=== PATIENT | male | born 1945 | race Caucasian/White ===

== ENCOUNTER → 2021-05-19 10:44 | Outpatient (BNVA) | payer MEDICARE, SELFPAY | PROVIDERS: PCP Family Medicine; Visit Provider Urology | DX: N40.1 Benign prostatic hyperplasia with lower urinary tract symptoms (principal); R39.12 Poor urinary stream; R31.29 Other microscopic hematuria | CPT/HCPCS: 51798; 99212 ==

== ENCOUNTER 2022-05-19 09:56 | Outpatient (REF) | payer MEDICARE, SELFPAY ==
[2022-05-19 16:37] LABS: Urine Cytology See Pathology rpt
== END 2022-05-19 09:57 | disposition home or self-care (01) ==
LOC: HO.LAB 09:56
PROVIDERS: PCP Family Medicine; Visit Provider Urology
DX: N40.1 Benign prostatic hyperplasia with lower urinary tract symptoms (principal); R31.29 Other microscopic hematuria
CPT/HCPCS: 51798; 88112; 99212

== ENCOUNTER 2023-05-07 11:09 | Outpatient (REF) | payer MEDICARE, SELFPAY ==
--- NOTE | ~2023-05-07 | US_ITS ---
EXAMINATION: US RETROPERITONEAL COMPLETE (RENAL) CLINICAL INFORMATION: Microscopic hematuria. COMPARISON: None available. TECHNIQUE: Real-time imaging of the kidneys and bladder. FINDINGS: RIGHT KIDNEY: 13.6 x 6.0 x 6.7 cm (SAG x AP x TRV). The kidney is normal in size, contour, and echogenicity. Renal cortical thickness is normal. No renal calculi or hydronephrosis. Three benign Bosniak class I and class II renal cysts are noted. The largest cyst is a 4.7 cm Bosniak class I cyst with a Bosniak class II cyst with a septation at the lower pole measuring 3.1 cm. These require no additional imaging or follow-up. No solid renal masses are seen. LEFT KIDNEY: 12.8 x 6.5 x 4.9 cm (SAG x AP x TRV). The kidney is normal in size, contour, and echogenicity. Renal cortical thickness is normal. No renal calculi or hydronephrosis. A benign 6.6 cm Bosniak class I renal cyst is noted which requires no additional imaging or follow-up. No solid renal masses are seen. BLADDER: Well distended and normal. Bilateral ureteral jets are demonstrated. Prevoid bladder volume is 248 mL. Postvoid bladder volume is 56 mL. There is mild BPH with 35 mL prostate. US/US retroperitoneal comp IMPRESSION: 1. Benign Bosniak class I and class II renal cysts which require no additional imaging or follow-up. 2. Mild BPH with 35 mL prostate and 56 mL postvoid residual.
== END 2023-05-07 11:10 | disposition home or self-care (01) ==
LOC: HO.US 11:09
PROVIDERS: PCP Family Medicine; Visit Provider Urology
DX: R31.29 Other microscopic hematuria (principal)
CPT/HCPCS: 76770

== ENCOUNTER 2023-06-26 09:43 | Outpatient (REF) | payer MEDICARE, SELFPAY ==
--- NOTE | ~2023-06-26 | US_ITS ---
EXAMINATION: US RETROPERITONEAL COMPLETE (RENAL) CLINICAL INFORMATION: Microscopic hematuria. COMPARISON: Ultrasound kidneys and bladder 05/07/2023. TECHNIQUE: Real-time imaging of the kidneys and bladder. FINDINGS: RIGHT KIDNEY: 17.2 x 6.8 x 6.3 cm (SAG x AP x TRV). The kidney is normal in size, contour, and echogenicity. Renal cortical thickness is normal. No renal calculi or hydronephrosis. 3 cysts. 5.7 x 5.2 x 5.2 cm simple cyst in the upper pole. 2.5 x 3.4 x 2.7 cm simple cyst in the lower pole. 2.5 x 3.4 x 2.9 cm minimally complex Bosniak type II cyst with thin septation in the lower pole. No imaging follow-up recommended. LEFT KIDNEY: 12.3 x 6.2 x 4.9 cm (SAG x AP x TRV). The kidney is normal in size, contour, and echogenicity. Renal cortical thickness is normal. No renal calculi or hydronephrosis. 6.4 x 3.4 x 3.4 cm simple cyst in the mid to lower pole. No imaging follow-up recommended. BLADDER: Well distended and normal. Bilateral ureteral jets are demonstrated. Prevoid bladder volume is 209 mL. Postvoid bladder volume is 28 mL. Prostate gland not well visualized. US/US retroperitoneal comp IMPRESSION: No cause of hematuria seen.
== END 2023-06-26 09:44 | disposition home or self-care (01) ==
LOC: HO.US 09:43
PROVIDERS: PCP Family Medicine; Visit Provider Urology
DX: R31.29 Other microscopic hematuria (principal)
CPT/HCPCS: 76770

== ENCOUNTER 2023-09-11 10:44 | Outpatient (AMB) | payer MEDICARE, SELFPAY ==
--- NOTE | 2023-09-11 10:45 | MHC.OFFVIS ---
Intake Intake Visit Reasons: 1Y US(set) Intake Note: Patient is Present for Follow Up US Urology Medication: Finasteride Antibiotic Allergies: None Blood Thinners: None Pharmacy: [facility] PVR: 0 Allergies No Known Allergies Allergy (Verified 09/11/23 10:49) Medication List - Last Reconciled 09/11/23 by Yung Rodriguez MD amitriptyline 10 mg PO BEDTIME clotrimazole-betamethasone 1-0.05 % 1 appl topical BID finasteride 5 mg PO DAILY 90 days levothyroxine 75 mcg PO DAILY losartan 50 mg PO DAILY pravastatin 10 mg PO BEDTIME HPI HPI Comments History of Present Illness Details Reginald Ahmadi is a very pleasant male. He is a patient of Dr Dennis. He is seen for the following urologic conditions. - microscopic hematuria - lower urinary tract symptoms Upper tract imaging normal Cytology normal Persistent low volume microscopic hematuria Happy with current performance of finasteride for voiding symptoms Twelve month follow-up Lower urinary tract symptoms 04/05 PSA 0.30. Microscopic hematuria was diagnosed during routine UA at office. They are here for the see in 12m - voiding improved with better stream - [facility] [place] [facility] - NAD with renal cysts. Since the last visit the patient has has not noticed gross hematuria, continues to test positive for microscopic hematuria. Relevant medical history for distant smoking history - agent orange exposure. Imaging - 2022 renal bladder ultrasound, bilateral renal cyst up to 6 cm, bladder normal Other investigations 09/04 , cytology, normal. Therapeutic plan Continue finasteride for GALLARDO symptoms. [facility] Medical History Renal cyst, acquired Microscopic hematuria Poor urinary stream Benign prostatic hyperplasia with lower urinary tract symptoms Surgical History History of surgery Review of Systems Const Denies chills and Denies fever(s) Card Reports no additional complaints and Denies syncope Resp Denies cough GI Denies abdominal pain and Denies heartburn Reports as per HPI and Denies change in libido Neuro Denies syncope Psych Denies change in libido Endo Denies change in libido Physical Exam Const General: cooperative, healthy appearing, comfortable and no acute distress Orientation/consciousness: patient oriented x3 HEENT Face and sinus: Yes normal facial exam Mouth: moist mucous membranes Neck Neck: Yes normal visual inspection, Yes full ROM and Yes trachea midline Chest Chest palpation & inspection: normal inspection of the chest Resp Effort & Inspection: normal respiratory effort, able to speak in complete sentences and no respiratory distress GI Inspection: Yes normal to inspection Back/Spine/Pelvis Cervical Spine: normal cervical lordosis Thoracic/Lumbar Spine: thoracic and lumbar spine normal to inspection Skin General skin exam: no rashes or lesions noted Neuro General: patient oriented x3, gait normal, tone normal and moves all extremities Extrem General: Yes normal to inspection and Yes capillary refill normal Office Procedures Post Void Residual Post Residual Void Post Void Residual (PVR): 0 [id number] Void Residual by ultrasound Results AMB Urinalysis, Automated UA Leukoctes 0 Hector/uL Last Edit by Ellen Valverde [facility] on 09/11/23 10:57 UA Nitrite Negative Last Edit by Ellen Valverde [facility] on 09/11/23 10:57 UA Urobilinogen 0.2 mg/dL Last Edit by Ellen Valverde [facility] on 09/11/23 10:57 UA Protein 0 mg/dL Last Edit by Ellen Valverde [facility] on 09/11/23 10:57 UA pH 6.0 Last Edit by Ellen Valverde [facility] on 09/11/23 10:57 UA Blood 25 Alfredo/uL Last Edit by Ellen Valverde [facility] on 09/11/23 10:[address] 1.015 Last Edit by Ellen Valverde [facility] on 09/11/23 10:57 UA Ketone Negative Last Edit by Ellen Valverde [facility] on 09/11/23 10:57 UA Bilirubin 0 mg/dL Last Edit by Ellen Valverde [facility] on 09/11/23 10:57 UA Glucose 0 mg/dL Last Edit by Ellen Valverde [facility] on 09/11/23 10:57 Results Reviewed Results Reviewed: Laboratory Last Values Urine pH (Auto) 6.0 09/11/23 10:[address] (Auto) 1.015 09/11/23 10:47 Urine Protein (Auto) 0 mg/dL 09/11/23 10:47 Glucose (UA)(Auto) 0 mg/dL 09/11/23 10:47 Urine Ketones (Auto) Negative 09/11/23 10:47 Urine Blood (Auto) 25 Alfredo/uL 09/11/23 10:47 Urine Nitrite (Auto) Negative 09/11/23 10:47 Urine Bilirubin (Auto) 0 mg/dL 09/11/23 10:47 Urine Urobilinogen (Auto) 0.2 mg/dL 09/11/23 10:47 Leukocyte Esterase (Auto) 0 Hector/uL 09/11/23 10:47 Assessment & Plan Assessment & Plan (1) Microscopic hematuria: Code(s): R31.29 - Other microscopic hematuria (2) Benign prostatic hyperplasia with lower urinary tract symptoms: Code(s): N40.1 - Benign prostatic hyperplasia with lower urinary tract symptoms Qualifiers: Lower urinary tract symptom detail: urinary frequency Qualified Code(s): N40.1 - Benign prostatic hyperplasia with lower urinary tract symptoms; R35.0 - Frequency of micturition Plan Twelve month follow-up Orders: Orders AMB Urinalysis Automated Today Z13.9 - Encounter for screening, unspecified AMB Post Void Residual by ultrasound Today N40.1 - Benign prostatic hyperplasia with lower urinary tract symptoms Prostate Specific Antigen 364 Days N40.1 - Benign prostatic hyperplasia with lower urinary tract symptoms Urine Cytology Today R31.29 - Other microscopic hematuria Patient Instructions: Imaging studies, laboratory and physical exam results were discussed and reviewed in detail. No major barriers to patient understanding were identified. An opportunity to ask questions regarding the treatment plan was provided. All questions were answered. The patient expressed understanding and agreement with the above treatment plan. The patient is aware they should contact our office by phone for worsening of their current condition or the appearance of new urologic symptoms. Compliance is encouraged with any medications and followup testing that is ordered. It is a privilege to participate in the urologic care of your patient. If you have any questions or concerns regarding treatment for the above conditions, or other urologic issues, please do not hesitate to contact me. The office telephone contact is [phone]. This note is constructed using voice recognition software. While every effort has been made to ensure accuracy valet manager errors may have been included. Yours sincerely, Dr Yung Rodriguez MD, [facility] - [facility] Providers of Expert, Compassionate Care for the Genitourinary System Coding Level of Care Code Est Pt Level 4 (41658) Diagnoses Microscopic hematuria R31.29 Benign prostatic hyperplasia with urinary frequency N40.1; R35.0 Lower urinary tract symptom detail: urinary frequency CPT Codes Post Residual Void - PVR CPT Code: 60008-Wvup Void Residual by ultrasound ([id number])
== END 2023-09-11 11:23 | disposition home or self-care (01) ==
PROVIDERS: Visit Provider Urology
DX: R31.29 Other microscopic hematuria (principal); N40.1 Benign prostatic hyperplasia with lower urinary tract symptoms; R35.0 Frequency of micturition; Z13.9 Encounter for screening, unspecified
CPT/HCPCS: 99213

== ENCOUNTER 2023-09-11 10:44 | Outpatient (REF) | payer MEDICARE, SELFPAY ==
[2023-09-11 16:55] LABS: Urine Cytology See Pathology rpt
== END 2023-09-11 10:45 | disposition home or self-care (01) ==
LOC: HO.LAB 10:44
PROVIDERS: Visit Provider Urology
DX: R31.29 Other microscopic hematuria (principal); N40.1 Benign prostatic hyperplasia with lower urinary tract symptoms; R35.0 Frequency of micturition
CPT/HCPCS: 51798; 81003; 88112; 99212

== ENCOUNTER 2025-02-18 08:23 | Outpatient (REF) | payer MEDICARE, SELFPAY ==
[2025-02-18 11:15] LABS: Prostate Specific Antigen 0.39 ng/mL (<0.05-4.0)
== END 2025-02-18 08:24 | disposition home or self-care (01) ==
LOC: HO.HMGCLDS 08:23
PROVIDERS: PCP Family Medicine; Visit Provider Urology
DX: Z12.5 Encounter for screening for malignant neoplasm of prostate (principal)
CPT/HCPCS: 36415; 84153

== ENCOUNTER 2025-02-26 08:55 | Outpatient (REF) | payer MEDICARE, SELFPAY ==
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
[2025-02-26 16:46] LABS: Urine Cytology See Pathology rpt
== END 2025-02-26 08:56 | disposition home or self-care (01) ==
LOC: HO.LAB 08:55
PROVIDERS: PCP Family Medicine; Visit Provider Urology
DX: N40.1 Benign prostatic hyperplasia with lower urinary tract symptoms (principal); R31.29 Other microscopic hematuria; R35.0 Frequency of micturition
CPT/HCPCS: 51798; 81003; 88112; 99212

== ENCOUNTER 2025-02-26 08:55 | Outpatient (AMB) | payer MEDICARE, SELFPAY ==
--- NOTE | 2025-02-26 09:06 | A.OFFVIS_ITS ---
Intake Visit Reasons: 1Y PVR/PSA Intake Note: Patient is Present for Follow Up US Urology Medication: Finasteride Antibiotic Allergies: None Blood Thinners: None PVR: 0ML'S TODAY'S PVR:0ML'S Housing Inspector Required: No Allergies No Known Allergies Allergy (Verified 02/26/25 09:07) HPI Comments Details: Reginald Ahmadi is a very pleasant male. He is a patient of Dr Gita moyer. He is seen for the following urologic conditions. - microscopic hematuria - lower urinary tract symptoms Prior Upper tract imaging normal Prior Cytology normal Persistent low volume microscopic hematuria May switch finasteride to Sunday, Sunday, Sunday Now [facility] [place] [facility] and [facility] Happy with current performance of finasteride for voiding symptoms Twelve month follow-up Agent orange exposure in [place] Lower urinary tract symptoms 04/05 PSA 0.30. Microscopic hematuria was diagnosed during routine UA at office. They are here for the see in 12m - voiding improved with better stream - prior evaluation through [place] - [place] March 2017 - NAD with renal cysts. Since the last visit the patient has has not noticed gross hematuria, continues to test positive for microscopic hematuria. Relevant medical history for distant smoking history - agent orange exposure. Imaging - 2022 renal bladder ultrasound, bilateral renal cyst up to 6 cm, bladder normal Other investigations 09/04 , cytology, normal. Therapeutic plan Continue finasteride for GALLARDO symptoms. [facility] Medical History Renal cyst, acquired Microscopic hematuria Poor urinary stream Benign prostatic hyperplasia with lower urinary tract symptoms Surgical History History of surgery Review of Systems Const Denies chills and Denies fever(s) Card Reports no additional complaints and Denies syncope Resp Denies cough GI Denies abdominal pain and Denies heartburn Reports as per HPI and Denies change in libido Neuro Denies syncope Psych Denies change in libido Endo Denies change in libido Physical Exam Const General: cooperative, healthy appearing, comfortable and no acute distress Orientation/consciousness: patient oriented x3 HEENT Face and sinus: Yes normal facial exam Mouth: moist mucous membranes Neck Neck: Yes normal visual inspection, Yes full ROM and Yes trachea midline Chest Chest palpation & inspection: normal inspection of the chest Resp Effort & Inspection: normal respiratory effort, able to speak in complete sentences and no respiratory distress GI Inspection: Yes normal to inspection Back/Spine/Pelvis Cervical Spine: normal cervical lordosis Thoracic/Lumbar Spine: thoracic and lumbar spine normal to inspection Skin General skin exam: no rashes or lesions noted Neuro General: patient oriented x3, gait normal, tone normal and moves all extremities Extrem General: Yes normal to inspection and Yes capillary refill normal Office Procedures Post Void Residual Post Residual Void Post Void Residual (PVR): 0 [id number] Void Residual by ultrasound Results AMB Urinalysis, Automated UA Leukoctes 0 Hector/uL Last Edit by KATE Badillo on 02/26/25 09:17 UA Nitrite Negative Last Edit by KATE Badillo on 02/26/25 09:17 UA Urobilinogen 0.2 mg/dL Last Edit by KATE Badillo on 02/26/25 09:1 7 UA Protein 0 mg/dL Last Edit by KATE Badillo on 02/26/25 09:17 UA pH 6.0 Last Edit by KATE Badillo on 02/26/25 09:17 UA Blood 80 Alfredo/uL Last Edit by KATE Badillo on 02/26/25 09:17 UA Specific [place] 1.015 Last Edit by KATE Badillo on 02/26/25 09: 17 UA Ketone Negative Last Edit by KATE Badillo on 02/26/25 09:17 UA Bilirubin 0 mg/dL Last Edit by Ambar Monk [facility] on 02/26/25 09:17 UA Glucose 0 mg/dL Last Edit by Ambar Monk [facility] on 02/26/25 09:17 Results Reviewed Results Reviewed: Laboratory Last Values Urine pH (Auto) 6.0 02/26/25 09:16 Specific [place] (Auto) 1.015 02/26/25 09:16 Urine Protein (Auto) 0 mg/dL 02/26/25 09:16 Glucose (UA)(Auto) 0 mg/dL 02/26/25 09:16 Urine Ketones (Auto) Negative 02/26/25 09:16 Urine Blood (Auto) 80 Alfredo/uL 02/26/25 09:16 Urine Nitrite (Auto) Negative 02/26/25 09:16 Urine Bilirubin (Auto) 0 mg/dL 02/26/25 09:16 Urine Urobilinogen (Auto) 0.2 mg/dL 02/26/25 09:16 Leukocyte Esterase (Auto) 0 Hector/uL 02/26/25 09:16 Assessment & Plan Assessment & Plan (1) Benign prostatic hyperplasia with lower urinary tract symptoms: Code(s): N40.1 - Benign prostatic hyperplasia with lower urinary tract symptoms Category: Medical Qualifiers: Lower urinary tract symptom detail: urinary frequency Qualified Code(s): N40.1 - Benign prostatic hyperplasia with lower urinary tract symptoms; R35.0 - Frequency of micturition (2) Microscopic hematuria: Code(s): R31.29 - Other microscopic hematuria Category: Medical Plan Plan 1. PSA indicating stability. Maintain [facility] coordination for prescription management. No further diagnostic imaging is necessary at this time, given previous normal results. Discuss Agent [place] exposure history in light of potential health implications. Follow-up for routine monitoring.: Discussion Notes We discussed maintaining the current management plan with a frequency adjustment for finasteride administration to address microscopic hematuria and urinary symptoms effectively. The patient?s PSA level is stable at 0.4, making finasteride an appropriate ongoing treatment. We reviewed the importance of coordinating prescriptions and care with the [facility], especially considering the patient's exposure to Agent [place]omb and its relevant risks. The patient expressed understanding of the medication adjustments and the reasons behind not requiring additional imaging. Morning urinary symptoms were addressed, with the strategy to monitor and adjust as needed based on symptoms. The status and recent developments in [facility] policy affecting care delivery were clarified, en suring that the patient feels secure in their care path. Follow-up and continuity with [facility] primary care, specifically with Dr. Cordova, is reinforced. Patient Instructions - Take finasteride every Sunday, Sunday, and Sunday. - Monitor any changes in urinary symptoms and report if they worsen. - Keep scheduled routine follow-ups and consult with Dr. Chavez for ongoing care. - Coordinate with the [facility] for [facility] and any required services. - Stay aware of impacts related to Agent Macomb exposure in case of new symptoms. Orders: Orders AMB Urinalysis Automated Today Z13.9 - Encounter for screening, unspecified Urine Cytology Today R31.29 - Other microscopic hematuria Patient Instructions: This note is constructed using voice recognition software. While every effort has been made to ensure accuracy screen printing cloth spreader errors may have been included. Imaging studies, laboratory and physical exam results were discussed and reviewed in detail. No major barriers to patient understanding were identified. An opportunity to ask questions regarding the treatment plan was provided. All questions were answered. The patient expressed understanding and agreement with the above treatment plan. The patient is aware they should contact our office by phone for worsening of their current condition or the appearance of new urologic symptoms. Compliance is encouraged with any medications and followup testing that is ordered. It is a privilege to participate in the urologic care of your patient. If you have any questions or concerns regarding treatment for the above conditions, or other urologic issues, please do not hesitate to contact me. The office telephone contact is [phone]. Sincerely, Dr Yung Rodriguez MD, [facility] - Urology Compassionate Specialist Care for the Genitourinary System Coding Level of Care Code Est Pt Level 4 (23743) Complex EM visit Add On G2211 Diagnoses Benign prostatic hyperplasia with urinary frequency N40.1; R35.0 Lower urinary tract symptom detail: urinary frequency Microscopic hematuria R31.29 CPT Codes Post Residual Void - PVR CPT Code: 42720-Vdix Void Residual by ultrasound ([id number])
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
--- OUTSIDE RECORDS SUMMARY | 2025-02-26 09:29 | XMS_ITS | Encounter Summary ---
Author Name [facility] [place] [facility] [place] Address [address] [place] [address] Care Team Providers Care Wood Model Maker Name Role Phone ANDREW NORWOOD Primary Care [...] Name Patient's Relationship to [place] SU[place] RICARDA PSUED O MEDEX HEARI NG Nov 19, 2020 [id number] [phone] Reginald PARMAR AVID PATIENT [place] SU[place] PSEUD O MEDEX BRONZ E Nov 19, 2016 [id number] Reginald PARMAR AVID PATIENT CIGNA HIGH DEDUCTIBL E HEALTH PLAN W/HEALTH SAVINGS ACCOUNT [facility] UTUAL HDHP HSA Nov 19, 2011 [id number] Pavel PARMAR ZAINATIF SPOUSE CIGNA* POINT OF SERVICE [place]ASS UTUAL FINAN CIAL Nov 19, 2009 [id number] [phone] Pavel PARMAR RANCINE SPOUSE EXPRESS SCRIPTS ([id number]) PRESCRIPT ION HDHP Nov 19, 2011 [id number] [phone] Pavel PARMARCINE SPOUSE EXPRESS SCR[employer]TS ([id number]) PRESCRIPT ION K4UA Nov 19, 2009 [id number] REIPOLD,D AVID PATIENT MEDICARE (WNR) MEDICARE () RR PART B Oct 19, 2016 RR PART B [id number] REIPOLD,D AVID PATIENT MEDICARE (WNR) MEDICARE () RR PART B Oct 19, 2016 RR PART B [id number] [phone] REIPOLD,D AVID PATIENT MEDICARE (WNR) MEDICARE () PART B Oct 19, 2016 PART B [id number] [phone] REIPOLD,D AVID PATIENT MEDICARE (WNR) MEDICARE () PART A 2011 PART A [id number] REIPOLD,D AVID PATIENT MEDICARE (WNR) MEDICARE () PART B 2011 PART B [id number] REIPOLD,D AVID PATIENT MEDICARE (WNR) MEDICARE () PART A 2011 PART A [id number] [phone] REIPOLD,D AVID PATIENT MEDICARE (WNR) MEDICARE () PART B 2011 PART B [id number] REIPOLD,D AVID PATIENT MEDICARE (WNR) MEDICARE () RR PART A 1994 RR PART A [id number] [phone] REIPOLD,D AVID PATIENT MEDICARE (WNR) MEDICARE () RR PART A 1994 RR PART A [id number] REIPOLD,D AVID PATIENT MEDICARE (WNR) MEDICARE () PART A 1994 PART A [id number] [phone] REIPOLD,D AVID PATIENT MEDICARE (WNR) MEDICARE () PART A 1994 PART A [id number] REIPOLD,D AVID PATIENT MEDICARE (WNR) MEDICARE () PART A 1994 PART A [id number] [phone] Reginald PARMAR PATIENT Selected Encounter This section includes the information on record at [place] for the Encounter. Date/Time Encounter Type Encounter Description Reason Pro vider Source Oct 09, 2024 10:54 AM Outpatient Encounter ADMIN PAT ACTIVTIES (MASNONCT) IHE Encounter Template Text not used by [place] Plan of Treatment: Future Appointments (+ 6 months) and Future Tests (+/- 45 days) The Plan of Treatment section includes future care activities for the [facility] [place] [facility] This section includes future appointments and future orders which are active, pending or scheduled. Future Appointments This section includes appointments that were scheduled to occur 6 months from the date of the Encounter, up to a maximum of 20 appointments. The data comes from all [place] treatment facilities. Appointment Date/Time Appointment Type Appointme nt Facility Name Feb 20, 2025 09:30 AM AMBULATORY - MEDICINE [facility] [place] [facility] Feb 24, 2025 09:30 AM AMBULATORY MEDICINE [facility] [place] [facility] Feb 25, 2025 08:00 AM AMBULATORY - MEDICINE [facility] [place] [facility] Social History: Smoking Status (Most current) and Tobacco Use (All prior to encounter date) This section includes the most current, and the historical, smoking and tobacco- related health factors from the [place] facility where the Encounter took place. Current Smoking Status This section includes the most current smoking, or tobacco-related health factor, from the [place] facility where the Encounter took place. Date/Time Current Smoking Status Comment Facil ity Sep 17, 2023 01:00 PM VA-TOBACCO [facility] [place] [facility] Tobacco Use History This section includes a history of the smoking, or tobacco-related health factors, that were collected on or before the date of the Encounter. The data comes from the [place] facility where the Encounter took place. Date/Time Smoking Status/Tobacco Use Comment F acility Sep 17, 2023 01:00 PM [place]-TOBACCO QUIT 15 YRS OR MORE [place] [facility] [place] [facility] April 14, 2020 11:41 AM VA-TOBACCO FORMER USER [place] [facility] [place] [facility] April 14, 2020 11:41 AM [place]-TOBACCO QUIT 15 YRS OR MORE [facility] Encounter Notes: All associated encounter notes This section contains the clinical notes associated to the Encounter. Date/Time Encounter Note(s) Provider Source Oct 09, 2024 10:54 AM MEDICATION MGT NOT E: LOCAL TITLE: MEDICATION RENEWAL STANDARD TITLE: MEDICATION MGT NOTE DATE OF NOTE: OCT 09, 2024@10:54 ENTRY DATE: OCT 09, 2024@10:54:58 AUTHOR: HARSHAD DIAS EXP COSIGNER: URGENCY: STATUS: COMPLETED Hello we have requesting medication renewal for mailing please please renew if appropiate Active Outpatient Medications (including Supplies): Active Non-VA Medications Status = HYDROCHLOROTHIAZIDE 25MG TAB PRAVASTATIN NA 10MG TAB /es/ HARSHAD DIAS WHOLESALE REPRESENTATIVE Signed: 10/09/2024 10:56 Receipt Acknowledged By: 10/09/2024 16:25 /man/ ANDREW NORWOOD D.O. PHYSICIAN HARSHAD DIAS [facility]
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
--- OUTSIDE RECORDS SUMMARY | 2025-02-26 09:29 | XMS_ITS | Continuity of Care Document ---
Author Organization [place] - [facility], [facility] Address [address] [place] [address] Assessment Encounter Date Assessment Date Assessment LastModified by Organization Details LastModified Time 02/23/2025 02/23/2025 Cerumen successfully removed from the left ear, which patient tolerated well. Otologic exam unremarkable on that side. On the right, there is a small closed comedone on the roof of the lateral external auditory canal. Reviewed with patient this is not infected and no antibiotic treatment is needed. Recommend he leave his hearing aid out for several days and apply a warm compress 3-4 times daily. Patient will call with lack of improvement or worsening. Otherwise, will follow-up in 6 months for cerumen removal. [email or web address] Not available 02/23/2025 11:11:35 Plan of Treatment Reminders Order Date Submit Date Provider Last Modified By Organization Details Last Modified Time Details Appointments Establish ed 15 2024 10:30A M MARISA FONSECA PA-C Not available Not available Not available Lab None recorded. Referral None recorded. Procedures None recorded. Surgeries None recorded. Imaging None recorded. Medication Orders None recorded. Patient TargetsNo targets recorded. Patient InstructionsNo instructions recorded. Reason for Referral None Reported. 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 specifie d superfic ial mycoses; Note: Date Diagnose d: 0 12:56 PM (B36.8) Not Available [facility] 4 02:57:09 Otalgia of right ear 1837681161 Active 2016 Otalgia, right ear; Note: Date Diagnose d: 7 4:14 PM (H92.01) Not Available [facility] 4 02:57:12 Impacted cerumen of bilatera l ears 92254192792 68989 Active 2014 Impacted cerumen, bilatera l; Note: Date Diagnose d: 09/01/20 15 1:39 PM (H61.23) Not Available [facility] 4 02:57:12 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 13646922654 69762 Active 2015 Exostosi s of external canal, bilatera l; Note: Date Diagnose d: 6 12:58 PM (H61.813 ) Not Available [facility] 4 02:57:13 Sensorin 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 189022200 Active 2017 Hearing loss: Sensorin eural hearing loss, bilatera l; Note: Date Diagnose d: 07/27/2015 3:56 PM (389.18) ; Start Date : 07/27/20 15 Senso rineural hearing loss, bilatera l; Note: Date Diagnose d: 8 10:32 AM (H90.3) Not Available [facility] 4 02:57:09 Bilatera l external auditory canal chronic otitis externa 05037920627 15388 Completed 201406/20/2024 Unspecif ied chronic otitis externa, bilatera l; Note: Date Diagnose d: 5 10:25 AM (H60.63) Not Available [facility] 4 02:57:13 Closed comedone 873299383 Active [address] [facility],[place] [address], [place], [address] , [facility] - [facility] 5 11:11:39 Impacted cerumen in left ear 07465538337 11156 Active [address],[place] [address], [place], [address] , [facility] - [facility] [place] 5 11:11:44 Problem Notes None recorded. Procedures Surgical History Date Name Laterality Status Provider Name and Address Organization Details Recorded Time 5 Cerumen removal without microscope left completed KEVIN WRIGHT[address],[place] [address], [place], [address], [facility] 02/23/2025 11:10:49 4 Cerumen removal without microscope bilat completed REDDY WRGIHTTheTakes[address],[place] [address], [place], [address], [facility] 08/06/2024 13:31:35 Imaging Results None recorded. Procedure Notes None recorded. Medical Equipment None Reported. Medications Name Sig Start Date Stop Date Status Note LastModified by Organization Details LastModified Time losartan 50 mg tablet TAKE 1 TABLET BY MOUTH DAILY active Not Available Not Available No t Available alprazola m 1 mg tablet TAKE 1 TABLET BY MOUTH 1 HOUR PRIOR TO INJECTIO N active Not Available Not Available No t Available benzonata te 200 mg capsule TAKE 1 CAPSULE BY MOUTH THREE TIMES DAILY FOR 7 DAYS active Not Available Not Available No t Available clotrimaz ole-betam ethasone 1 %-0.05 % lotion 11/29 completed Medicati on ID: [id number] R va: () Brand Name: Alpeshon e Send Method: E-Prescr ibed Sub s Allowed: subs OK Speci al Instruct ion: apply to external ear tid X 2 weeks Me dication GenericN stiven: Lotrison e Not Available Not Available Not Available sildenafi l 100 mg tablet 2020 active Medicati on ID: [id number] B rand Name: jose antonio il Send Method: E-Prescr ibed Sub s Allowed: subs OK Speci al Instruct ion: TK 1 T PO D PRF ERECTILE DYSFUNCT ION Medi cationGe nericNam e: gayladenaf il Not Available Not Available Not Available levothyro xine 75 mcg tablet TAKE 1 TABLET BY MOUTH DAILY active Not Available Not Available No t Available amitripty line 25 mg tablet TAKE 2 TABLETS BY MOUTH AT BEDTIME. IF NOT IMPROVED IN 2 WEEKS TAKE 3 TABLETS BY MOUTH. STILL NOT IMPROVED IN 2 WEEKS TAKE 4 TABLET active Not Available Not Available No t Available amitripty line 10 mg tablet active Not Available Not Available No t Available econazole nitrate 1 % topical cream APPLY TOPICALL Y TO THE AFFECTED AREA TWICE DAILY active Not Available Not Available No t Available clotrimaz ole-betam ethasone 1 %-0.05 % topical cream 1 a small amount 2020 active Medicati on ID: [id number] D uration Value: 14 Prescri bed By Name: MIKE Martinez nd Name: joserirefugio darryl jimenez Send Method: E-Prescr ibed Sub s Allowed: subs OK Speci al Instruct ion: Apply with fingerti p to external ear as needed M edicatio nGeneric Name: clotrima laura-emily germain ne Not Available Not Available Not Available clotrimaz ole 1 % topical solution 11/29 completed Medicati on ID: [id number] P rescribe d By Name: JEREMIE Dillard nd Name: rubyrefugio laura Collins d Method: E-Prescr ibed Sub s Allowed: subs OK Speci al Instruct ion: 5 drops to affected ear twice a day Medi cationGe nericNam e: clotrima zole Not Available Not Available Not Available hydrochlo rothiazid e 25 mg tablet 11/29 completed Medicati on ID: [id number] Du ration Value: 90 Brand Name: hydrochl orothiaz susie Send Method: E-Prescr ibed Sub s Allowed: subs OK Medic ationGen ericName : hydrochl orothiaz susie Not Available Not Available Not Available diclofena c sodium 50 mg tablet,de layed release TAKE 1 TABLET BY MOUTH TWICE DAILY WITH FOOD active Not Available Not Available No t Available gabapenti n 100 mg capsule TAKE 2 CAPSULES BY MOUTH AT BEDTIME. IF TOLERATI NG WELL. MAY INCREASE TO 3 TABLETS active Not Available Not Available No t Available ketoconaz ole 2 % topical cream active Not Available Not Available Not Available fluticaso ne propionat e 50 mcg/actua tion nasal spray,bacilio pension SHAKE LIQUID AND USE 1 SPRAY IN EACH NOSTRIL TWICE DAILY active Not Available Not Available No t Available finasteri de 5 mg tablet TAKE 1 TABLET BY MOUTH DAILY active Not Available Not Available No t Available tobramyci n 0.3 %-dexamet hasone 0.1 % eye drops,bacilio pension 04/03 completed Medicati on ID: [id number] Du ration Value: 10 Reason: () Brand Name: tobramyc in-dexam ethasone Send Method: E-Prescr ibed Sub s Allowed: subs OK Medic ationGen ericName : tobramyc in-dexam ethasone Not Available Not Available Not Available duloxetin e 30 mg capsule,d elayed release TAKE 1 CAPSULE BY MOUTH EVERY MORNING - IF NOT IMPROVED AFTER 1 MONTH INCREASE TO 2 CAPSULES BY MOUTH EVERY MORNING active Not Available Not Available No t Available GaviLyte- G 236 gram-22.7 4 gram-6.74 gram-5.86 gram oral solution 02/23 completed Not Available Not Available Not Available Vitals Date Recorded Body height Body mass index (BMI) Body weight Provider Name and Address Organization Details Last Updated DateTime 02/23/2025 167.64 cm 39.2 kg/m2 280673.95 g Lynda Stearns [place] - [facility] 02/23/2025 10:52:19 Social History None recorded. Functional Status None recorded. Mental Status None recorded. Family History Nothing Reported. Medical History No medical history recorded. Past Encounters Encounter ID Performer Location Encounter Start Date Encounter Closed Date Diagnosis/Indication Diagnosis SNOMED-CT Code Diagnosis ICD10 Code Diagnosis Note [id number] BILL ZALDIVAR MD [facility] [address] [place] [address] 02/23/2025 10:48:07 02/23/2025 11:00:44 Closed comedone 779991073 L70.0 Impacted c erumen in left ear 5435912031 230974 H61.22 Health Concerns Section Related Observation LastModified by Organization Detai ls LastModified Time None Recorded Concern Status LastModified by Organization Details LastModified Time None Recorded Payers Encounter Date Sequence Insurance Name Policy Number Policy Park Covered Member ID Park Member ID Guarantor Name 02/23/2025 1 MED[place]ARE [place]: [facility] [employer] Reginald Ahmadi [id number] Reginald Tirado Brentmarcie 02/23/2025 2 [place] [employer] [employer] [id number] Reginald Chileldeannmarcie [id number] Reginald Candida Brentmarcie Notes Date Note Type Note Provider Name and Address Organization Details Recorded Time 02/23/2025 text/html 79-year-old male presents for evaluation of the ears. He reports that in the past few weeks, he has had discomfort in 1 discrete spot when he inserts his right hearing aid. There has been no otorrhea. He feels his hearing is at baseline. He gets his audiometric testing and his hearing aids from the [facility]. BILL ZALDIVAR MD [address] [place] [address], [phone], [facility] - [facility] 02/23/2025 16:57:53
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
--- OUTSIDE RECORDS SUMMARY | 2025-02-26 09:29 | XMS_ITS | Continuity of Care Document ---
Author Organization [facility]. If a dditional information is needed, contact Health Information Management at [phone] Address [address] [place] [address] Phone Care Team Providers Care Varnishing Machine Operator Name Role Phone Unavailable Unavailable Unavailable Unavailable Unavailable Unavailable Unavailable Unavailable Unavailable Problems Diverticular disease Onset:26-Jan-2022 Uyen Sanchez MD Allergies and Adverse Reactions No Known Allergies(Allergy) Onset: 26-Jan-2022 Social History Smoking Status Tobacco smoking consumption unknown Recorded: Dec-2022 Tobacco smoking consumption unknown Recorded:
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
--- OUTSIDE RECORDS SUMMARY | 2025-02-26 09:30 | XMS_ITS | Data Portability ---
Author Organization [place] - [facility], Allergy Address [address] [place] [phone] Assessment Encounter Date Assessment Date Assessment LastModified by Organization Details LastModified Time 08/06/2024 08/06/2024 Patient presents for evaluation of ears. Cerumen successfully removed bilaterally, which patient tolerated well. Otologic exam otherwise unremarkable. Patient reported hearing returned to baseline thereafter and declined audiometric testing. Return in 3-6 months for cerumen removal. Avoid Q-tips. Avoid or protect against loud noise. Continue routine use of binaural amplification. Recommend annual audiometric testing, sooner with perceived change. Patient understands to call sooner with any issues that arise. Not available 08/06/2024 13:31:57 02/23/2025 02/23/2025 Cerumen successfully removed from the [...] follow-up in 6 months for cerumen removal. 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 Active 2019 Other specifie d superfic ial mycoses; Note: Date Diagnose d: 0 12:56 PM (B36.8) Not Available [facility] 4 02:57:09 Otalgia of right ear 1594035946 Active 2016 Otalgia, right ear; Note: Date Diagnose d: 7 4:14 PM (H92.01) Not Available [facility] 4 02:57:12 Impacted cerumen of bilatera l ears 17017994107 Active 2014 Impacted cerumen, bilatera l; Note: Date Diagnose d: 09/01/20 15 1:39 PM (H61.23) Not Available [facility] 4 02:57:12 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 51085583535 72868 Active 2015 Exostosi s of external canal, bilatera l; Note: Date Diagnose d: 6 12:58 PM (H61.813 ) Not Available [facility] 4 02:57:13 Sensorin 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 759507528 Active 2017 Hearing loss: Sensorin eural hearing loss, bilatera l; Note: Date Diagnose d: 07/27/2015 3:56 PM (389.18) ; Start Date : 07/27/20 15 Senso rineural hearing loss, bilatera l; Note: Date Diagnose d: 8 10:32 AM (H90.3) Not Available [facility] 4 02:57:09 Bilatera l external auditory canal chronic otitis externa 07981835807 46895 Completed 201406/20/2024 Unspecif ied chronic otitis externa, bilatera l; Note: Date Diagnose d: 5 10:25 AM (H60.63) Not Available [facility] 4 02:57:13 Closed comedone 064611277 Active 2024 DANIELLE DIMAS PA-C [address] [place] [facility], [place], [address] , [facility] - [facility] 5 11:11:39 Impacted cerumen in left ear 80769799264 51725 Active 2024 KEVIN WRIGHTC [address] [place] [address], [place], [address] , [facility] - [facility] [place] 5 11:11:44 Problem Notes None recorded. Procedures Surgical History Date Name Laterality Status Provider Name and Address Organization Details Recorded Time 5 Cerumen removal without microscope left completed DANIELLE DIMAS PA-C [address] [place] [facility], [place], [address], [facility] 02/23/2025 11:10:49 4 Cerumen removal without microscope bilat completed KEVIN WRIGHTC [address] [place] [facility], [place], [address], [facility] - [facility] 08/06/2024 13:31:35 Imaging Results None recorded. Procedure [...] % lotion 11/29 completed Medicati on ID: [id number] R va: () Brand Name: Wei e Send Method: E-Prescr ibed Sub s Allowed: subs OK Speci al Instruct ion: apply to external ear tid X 2 weeks Me dication GenericN stiven: Lotrison e Not Available Not Available Not Available sildenafi l 100 mg tablet 2020 active Medicati on ID: [id number] B rand Name: sildenaf il Send Method: E-Prescr ibed Sub s Allowed: subs OK Speci al Instruct ion: TK 1 T PO D PRF ERECTILE DYSFUNCT ION Medi cationGe nericNam e: sildenaf il Not Available Not Available Not Available [...] small amount 2020 active Medicati on ID: [id number] D uration Value: 14 Prescri bed By Name: MIKE Martinez nd Name: clotrima laura-emily jimenez Send Method: E-Prescr ibed Sub s Allowed: subs OK Speci al Instruct ion: Apply with fingerti p to external ear as needed M edicatio nGeneric Name: clotrima zole-bet amethadrienneo barbara Not Available Not Available Not Available clotrimaz ole 1 % topical solution 11/29 completed Medicati on ID: [id number] P rescribe d By Name: JEREMIE Dillard nd Name: joserirefugio Collins d Method: E-Prescr ibed Sub s Allowed: subs OK Speci al Instruct ion: 5 drops to affected ear twice a day Medi cationGe nericNam e: clotrima zole Not Available Not Available Not Available hydrochlo rothiazid e 25 mg tablet 11/29 completed Medicati on ID: [id number] Du ration Value: 90 Brand Name: raza orothiaz susie Send Method: E-Prescr ibed Sub [...] drops,bacilio pension 04/03 completed Medicati on ID: [id number] Du ration Value: 10 Reason: () Brand [...] Updated DateTime 02/23/2025 167.64 cm 39.2 kg/m2 090015.95 g Lynda Stearns [place] - [facility] 02/23/2025 10:52:19 Date Recorded Body height Body mass index (BMI) Body weight Provider Name and Address Organization Details Last Updated DateTime 08/06/2024 167.64 cm 37.9 kg/m2 919037.21 g [facility] [place] [facility] 08/06/2024 13:17:26 Social History None recorded. Functional Status None recorded. Mental Status None recorded. Family History Nothing Reported. Medical History No medical history recorded. Past Encounters Encounter ID Performer Location Encounter Start Date Encounter Closed Date Diagnosis/Indication Diagnosis SNOMED-CT Code Diagnosis ICD10 Code Diagnosis Note [id number] BILL ZALDIVAR MD [facility] [address] [address] 08/06/2024 13:15:00 08/06/2024 13:32:07 Impacted cerumen of bilateral ears [id number] 883540 H61.23 [id number] BILL ZALDIVAR MD [facility] [address] [address] 02/23/2025 10:48:07 02/23/2025 11:00:44 Closed comedone 622379934 L70.0 Impacted c erumen in left ear 0362898799 927766 H61.22 Health Concerns Section Related Observation LastModified by Organization Detai ls LastModified Time None Recorded Concern Status LastModified by Organization Details LastModified Time None Recorded Advance Directives Directive None Recorded Payers Encounter Date Sequence Insurance Name Policy Number Policy Park Covered Member ID Park Member ID Guarantor Name 08/06/2024 1 [place] [employer] Reginald Tirado Redeannold [id number] Reginald Tirado Reipold 08/06/2024 2 [place] [employer] [facility] [id number] Reginald Ahmadi [id number] Reginald Tirado Repatricio 02/23/2025 1 [place] [employer] Reginald Candida Reipold [id number] Reginald Tirado Reipold 02/23/2025 2 [place] [email or web address] [facility] [id number] Reginald Kennedyold [id number] Reginald Ahmadi Notes Date Note Type Note Provider Name and Address Organization Details Recorded Time 08/06/2024 text/html 79 year old male presents for evaluation of the ears. He thinks he may have a cerumen impaction. He admits to Q-tip use, got some wax out a few days ago. His hearing aids fit comfortably and provide good benefit. He gets regular audiometric testing and hearing aid maintenance at the [facility]. There has been no otalgia nor otorrhea. BILL ZALDIVAR MD [address] [facility],[address], [address], [facility] 08/06/2024 16:58:22 02/23/2025 text/html 79-year-old male presents for evaluation of the ears. He reports that in the past few weeks, he has had discomfort in 1 discrete spot when he inserts his right hearing aid. There has been no otorrhea. He feels his hearing is at baseline. He gets his audiometric testing and his hearing aids from the [facility]. BILL ZALDIVAR MD [address] [facility],[address], [address], [facility] 02/23/2025 16:57:53
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
--- OUTSIDE RECORDS SUMMARY | 2025-02-26 09:30 | XMS_ITS ---
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 Name Role Phone ANDREW NORWOOD Primary Care [...] Name Patient's Relationship to [place] SUPPLEMEN RICARDA PSUED O MEDEX HEARI NG Nov 19, 2020 [id number] [phone] Reginald PARMAR AVID PATIENT [place] SUPPLEMEN RICARDA PSEUD O MEDEX BRONZ E Nov 19, 2016 [id number] [phone] Reginald PARMAR AVID PATIENT CIGNA HIGH DEDUCTIBL E HEALTH PLAN W/HEALTH SAVINGS [facility] HSA Nov 19, 2011 [id number] AGATAPavel WILLIAM SPOUSE CIGNA* POINT OF SERVICE [facility] UTUAL FINAN CIAL Nov 19, 2009 [id number] [phone] AGATAPavel RANCINE SPOUSE EXPRESS SCRIPTS ([id number]) PRESCRIPT ION HDHP Nov 19, 2011 [id number] [id number] [phone] Pavel PARMAR SPOUSE EXPRESS SCRIPTS ([id number]) PRESCRIPT ION K4UA Nov 19, 2009 K4UA [id number] REIPOLD,D AVID PATIENT MEDICARE (WNR) MEDICARE () RR PART B Oct 19, 2016 RR PART B [id number] [phone] REIPOLD,D AVID PATIENT MEDICARE (WNR) MEDICARE () RR PART B Oct 19, 2016 RR PART B [id number] [phone] REIPOLD,D AVID PATIENT MEDICARE (WNR) MEDICARE () PART B Oct 19, 2016 PART B [id number] REIPOLD,D AVID PATIENT MEDICARE (WNR) MEDICARE () PART B 2011 PART B [id number] REIPOLD,D AVID PATIENT MEDICARE (WNR) MEDICARE () PART A 2011 PART A [id number] [phone] REIPOLD,D AVID PATIENT MEDICARE (WNR) MEDICARE () PART B 2011 PART B [id number] REIPOLD,D AVID PATIENT MEDICARE (WNR) MEDICARE () PART A 2011 PART A [id number] [phone] REIPOLD,D AVID PATIENT MEDICARE (WNR) MEDICARE () RR PART A 1994 RR PART A [id number] REIPOLD,D AVID PATIENT MEDICARE (WNR) MEDICARE () RR PART A 1994 RR PART A [id number] [phone] REIPOLD,D AVID PATIENT MEDICARE (WNR) MEDICARE () PART A 1994 PART A [id number] REIPOLD,D AVID PATIENT MEDICARE (WNR) MEDICARE () PART A 1994 PART A [id number] [phone] REIPOLD,D AVID PATIENT MEDICARE (WNR) MEDICARE () PART A 1994 PART A [id number] [phone] AGATAReginald LEONARDOReginald PATIENT Selected Encounter This section includes the information on record at [place] for the Encounter. Date/Time Encounter Type Encounter Description Reason Provider Source May 15, 2024 09:30 AM HEARING AID FITTING/CHECKIN G AUDIOLOGY ICD-10-CM Z46.1 Encounter for fitting and adjustment of hearing aid RIN HILLBERLY HILLARY SANDYErvin Encounter Template Text not used by [place] Assessments - Encounter Diagnoses This section includes the primary and secondary diagnoses documented for the Encounter. 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 Current Smoking Status This section includes the most current smoking, or tobacco-related health factor, from the [place] facility where the Encounter took place. Date/Time Current Smoking Status Comment Facil ity Sep 17, 2023 01:00 PM VA-TOBACCO FORMER USER [facility] Tobacco Use History This section includes a history of the smoking, or tobacco-related health factors, that were collected on or before the date of the Encounter. The data comes from the [place] facility where the Encounter took place. Date/Time Smoking Status/Tobacco Use Comment F acility Sep 17, 2023 01:00 PM [place]-TOBACCO QUIT 15 YRS OR MORE [facility] April 14, 2020 11:41 AM VA-TOBACCO FORMER [facility]ER [facility] April 14, 2020 11:41 AM [place]-TOBACCO QUIT 15 YRS OR MORE [facility] Encounter Notes: All associated encounter notes This section contains the clinical notes associated to the Encounter. Date/Time Encounter Note(s) Provider Source May 15, 2024 07:21 AM AUDIOLOGY E & M NO TE: LOCAL TITLE: AUDIOLOGY CLINIC STANDARD TITLE: AUDIOLOGY E & M NOTE DATE OF NOTE: MAY 15, 2024@07:21 ENTRY DATE: MAY 15, 2024@07:21:33 AUTHOR: ABAD HILL COSIGNER: URGENCY: STATUS: COMPLETED Dx CODE: Z46.1-Encounter for Fitting/Adjusting Hearing Aid(s); H90.3- Sensorineural Hearing Loss, Bilateral APPOINTMENT TYPE: Hearing Aid Check HISTORY/BACKGROUND: was seen for a hearing aid follow-up appointment, unaccompanied. He was fit with Ebyline Evolv AI BTEs on 11/21/23. He was scheduled today to shrimp picker his repaired left hearing aid. HEARING AID PROGRAMMING: The left tube was measured to size on 's ear. Hearing aids were connected to listedplaces and user settings restored. Due to patient's complaints of background noise, speech in noise was increased to 4. PLAN/RECOMMENDATION(S): 1. Follow up as needed. /man/ ABAD HILL STAFF CREDIT COMPLIANCE OFFICER Signed: 05/15/2024 09:49 ABAD HILL [place] [facility]
--- OUTSIDE RECORDS SUMMARY | 2025-02-26 09:30 | XMS_ITS | Encounter Summary ---
Author Name [facility] [facility] [place] [facility] Address [address] [place] [address] Care Team Providers Care Marketing Operations Specialist Name Role Phone ANDREW NORWOOD Primary Care [...] Name Patient's Relationship to [place] SUPPLEMEN RICARDA PSUED O MEDEX HEARI NG Nov 19, 2020 [id number] [phone] Reginald PARMAR AVID PATIENT [place] SUPPLEMEN RICARDA PSEUD O MEDEX BRONZ E Nov 19, 2016 [id number] [phone] Reginald PARMAR AVID PATIENT CIGNA HIGH DEDUCTIBL E HEALTH PLAN W[facility] Nov 19, 2011 [phone] AGATAPavel WILLIAM SPOUSE CIGNA* POINT OF SERVICE [facility] UTUAL FINAN CIAL Nov 19, 2009 [id number] [phone] AGATAPavel RANCINE SPOUSE [employer] ([id number]) PRESCRIPT ION HDHP Nov 19, 2011 [id number] Pavel PARMAR SPOUSE [employer] ([id number]) PRESCRIPT ION K4UA Nov 19, 2009 [id number] REIPOLD,D AVID PATIENT MEDICARE (WNR) MEDICARE () RR PART B Oct 19, 2016 RR PART B [id number] [phone] REIPOLD,D AVID PATIENT MEDICARE (WNR) MEDICARE () RR PART B Oct 19, 2016 RR PART B [id number] [phone] REIPOLD,D AVID PATIENT MEDICARE (WNR) MEDICARE () PART B Oct 19, 2016 PART B [id number] REIPOLD,D AVID PATIENT MEDICARE (WNR) MEDICARE () PART A 2011 PART A [id number] REIPOLD,D AVID PATIENT MEDICARE (WNR) MEDICARE () PART B 2011 PART B [id number] REIPOLD,D AVID PATIENT MEDICARE (WNR) MEDICARE () PART A 2011 PART A [id number] [phone] REIPOLD,D AVID PATIENT MEDICARE (WNR) MEDICARE () PART B 2011 PART B [id number] REIPOLD,D AVID PATIENT MEDICARE (WNR) MEDICARE () PART A 1994 PART A [id number] REIPOLD,D AVID PATIENT MEDICARE (WNR) MEDICARE () RR PART A 1994 RR PART A [id number] [phone] REIPOLD,D AVID PATIENT MEDICARE (WNR) MEDICARE () RR PART A 1994 RR PART A [id number] REIPOLD,D AVID PATIENT MEDICARE (WNR) MEDICARE () PART A 1994 PART A [id number] [phone] REIPOLD,D AVID PATIENT MEDICARE (WNR) MEDICARE () PART A 1994 PART A [id number] Reginald PARMAR PATIENT Selected Encounter This section includes the [place] at [place]. Date/Time Encounter Type Encounter Description Reason Provider Source April 17, 2024 09:00 AM HEARING AID REPAIR/MODIFYIN G AUDIOLOGY ICD-10-CM Z46.1 Encounter for fitting and adjustment of hearing aid [facility] Encounter Template Text not used by [place] Assessments - Encounter Diagnoses This section includes the primary and secondary diagnoses documented for the Encounter. Date/Time Primary/Secondary Diagnosis Diagnosis Name Provider Source April 17, 2024 09:46 AM PRIMARY Encounter for fitting and adjustment of hearing aid [facility] April 17, 2024 09:46 AM SECONDARY Sensorineural hearing loss, bilateral [facility] Plan of Treatment: Future Appointments (+ 6 months) and Future Tests (+/- 45 days) The Plan of Treatment section includes future care activities for the patient [facility] [place] [facility] [place] This section includes future appointments and future orders which are active, pending or scheduled. Future Appointments This section includes appointments that were scheduled to occur 6 months from the date of the Encounter, up to a maximum of 20 appointments. The data comes from all [place] treatment facilities. Appointment Date/Time Appointment Type Appointme nt Facility Name May 15, 2024 09:30 AM AMBULATORY - REHAB MEDICIN E [facility] Social History: Smoking Status (Most current) and Tobacco Use (All prior to encounter date) This section includes the most current, and the historical, smoking and tobacco- related health factors from the [place] facility where the Encounter took place. Current Smoking Status This section includes the most current smoking, or tobacco-related health factor, from the [place] facility where the Encounter took place. Date/Time Current Smoking Status Comment Facil ity Sep 17, 2023 01:00 PM [place]-TOBAC[place] FORMER USER [facility] Tobacco Use History This section includes a history of the smoking, or tobacco-related health factors, that were collected on or before the date of the Encounter. The data comes from the [place] facility where the Encounter took place. Date/Time Smoking Status/Tobacco Use Comment F acility Sep 17, 2023 01:00 PM [place]-TOBACCO QUIT 15 YRS OR MORE [place] [facility] [place] [facility] April 14, 2020 11:41 AM [facility] April 14, 2020 11:41 AM VA-TOBACCO QUIT [facility] YRS [facility] Encounter Notes: All associated encounter notes This section contains the clinical notes associated to the Encounter. Date/Time Encounter Note(s) Provider Source April 17, 2024 07:49 AM AUDIOLOGY E & M NO TE: LOCAL TITLE: AUDIOLOGY CLINIC STANDARD TITLE: AUDIOLOGY E & M NOTE DATE OF NOTE: APRIL 17, 2024@07:49 ENTRY DATE: APRIL 17, 2024@07:49:25 AUTHOR: [facility] COSIGNER: URGENCY: STATUS: COMPLETED AUDIOLOGY CLINIC Has ADDENDA Dx CODE: Z46.1-Encounter for Fitting/Adjusting Hearing Aid(s); H90.3- Sensorineural Hearing Loss, Bilateral APPOINTMENT TYPE: Hearing Aid Check HISTORY/BACKGROUND: was seen for a hearing aid follow-up appointment, unaccompanied. He was fit on 11/21/23 with JAMES EVOLV AI BTE 13s. He scheduled today's appointment noting that the left hearing aid is not working. brought his back-up 2020 JAMES JOEL EDGE AI BTE 13s as well for hearing aid maintenance. HEARING AID CHECK: All four hearing aids were cleaned and checked. Tubing, tone hooks, and microphone covers were replaced. Listening inspection indicated that the left Evolv aid was despite maintenance and it could not be connected to the [employer] software. The left Evolv aid was sent for repair today. The right Evolv aid and both Joel aids are all working well. HEARING AID PROGRAMMING: -The 2020 Joel aids were reprogrammed to the most recent audiogram and [place] reported improved sound quality. PLAN/RECOMMENDATION(S): 1. The repaired left aid will be mailed to the clinic. Upon receipt, will be contacted to schedule a 30 min HAC to pick-up and confirm that the repaired is reprogrammed correctly. [place] notes that he will be away for most of April. Patient Education Education provided on the following topics: Hearing aids Education provided to: P Response to Education: VU Qureshi Patient P Family F Significant Other SO Verbalizes Understanding VU Returns Demonstration RD Performs Independently PI Lacks Comprehension LC Refused Education RE Not Applicable NA /GENE Barnes, [facility]3]-A STAFF IT TRAINING SPECIALIST Signed: 04/17/2024 09:47 05/01/2024 ADDENDUM STATUS: COMPLETED Repaired left hearing aid and earmold received and certified, spoke with [place] and scheduled 30 min HAC on 05/15/2024. Hearing aid/earmold placed in romero cabinet Scheduled shelf. /joselito GARRETT Audiology Health Director Of Strategic Alliances Signed: 05/01/2024 10:38 [facility] [place] [facility]
== END 2025-02-26 09:54 | disposition home or self-care (01) ==
LOC: HO.HUSH 08:56
PROVIDERS: PCP Family Medicine; Visit Provider Urology
DX: N40.1 Benign prostatic hyperplasia with lower urinary tract symptoms (principal); R35.0 Frequency of micturition; R31.29 Other microscopic hematuria; Z13.9 Encounter for screening, unspecified
CPT/HCPCS: 99214; G2211